=== PATIENT | male | born 1960 | race Caucasian/White ===

== ENCOUNTER → 2016-09-07 | Outpatient (CLI) | payer OTHER ==
[~2016-09-07] VITALS: Ht 190.5 cm; Wt 109.0 kg
[~2016-09-07] MED LIST: HYDROCODONE-APA1 TA1 PO; NABUMETONE 750750 M1 PO; NOHOMEMEDICATIONS; ZANAFLEX4 MG PO
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
[2016-09-07 15:34] VITALS: BP 125/85
== END | disposition home or self-care (01) ==
LOC: PAIN 08:47
DX: M54.16 Radiculopathy, lumbar region (principal); Z87.891 Personal history of nicotine dependence; M54.12 Radiculopathy, cervical region; M47.812 Spondylosis without myelopathy or radiculopathy, cervical region; F17.210 Nicotine dependence, cigarettes, uncomplicated

== ENCOUNTER → 2016-10-05 | Outpatient (CLI) | payer OTHER | LOC: CAT 10:30 | DX: M47.892 Other spondylosis, cervical region (principal); R59.9 Enlarged lymph nodes, unspecified ==

== ENCOUNTER → 2021-04-06 | Outpatient (CLI) | payer OTHER | LOC: CAT 16:10 | PROVIDERS: ATTEND Family Medicine | DX: Z13.6 Encounter for screening for cardiovascular disorders (principal); M47.816 Spondylosis without myelopathy or radiculopathy, lumbar region; M51.27 Other intervertebral disc displacement, lumbosacral region; M48.07 Spinal stenosis, lumbosacral region; M25.78 Osteophyte, vertebrae; M43.16 Spondylolisthesis, lumbar region ==

== ENCOUNTER → 2021-04-25 | Outpatient (CLI) | payer BC, OTHER | LOC: CAT 10:32 | PROVIDERS: ATTEND Family Medicine | DX: J32.3 Chronic sphenoidal sinusitis (principal); R51.9 Headache, unspecified ==